=== PATIENT | female | born 1980 | race Caucasian/White ===

== ENCOUNTER 2021-07-21 10:10 | Inpatient (IN) | payer MEDICAID ==
[2021-07-21] MEDS ORDERED: Sodium Chloride 0.9% 10 ML Syringe FLUSH PRN (10:32)
[2021-07-21] MEDS ORDERED: Nalbuphine 10 MG/1 ML Vial IVPUSH PRN (10:32)
[2021-07-21] MEDS ORDERED: Ondansetron 4 MG/2 ML SDV IVPUSH PRN (10:32)
[2021-07-21] MEDS ORDERED: Oxytocin/Lactated Ringers 10 UNIT/1,000 ML BAG IV SCH ×2 (10:45→17:15)
[2021-07-21] MEDS: Lactated Ringers 1,000 ML IV SCH ×2 (19:23→20:30)
[2021-07-21] MEDS ORDERED: ePHEDrine 50 MG/ML SDV IVPUSH PRN (19:34)
[2021-07-21] MEDS ORDERED: diphenhydrAMINE 50 MG/ML SDV IVPUSH PRN (19:34)
[2021-07-21] MEDS ORDERED: fentaNYL 100 MCG/2 ML SDV EPIDUR PRN (19:34)
[2021-07-21] MEDS ORDERED: Bupivacaine/fentaNYL/NS 100 ML Bag EPIDUR PRN (19:34)
--- NOTE | 2021-07-21 20:11 | PCM.PREANE ---
Preanesthetic Assessment - Procedure Proposed Procedure: epidural - Anesthesia/Transfusion/Family Hx Anesthesia History: Prior Anesthesia Without Reaction Family History of Anesthesia Reaction: No Transfusion History: No Prior Transfusion(s) Intubation History: Unknown - Review of Systems General: Fatigue Pulmonary: No Symptoms Cardiovascular: No Symptoms Gastrointestinal: Abdominal Pain (labor) Neurological: No Symptoms Other: Reports: None - Physical Assessment Vital Signs: Last Vital Signs Temp 36.5 C 07/21/21 10:32 Pulse 82 07/21/21 10:32 Resp 16 07/21/21 10:32 BP 125/74 07/21/21 10:32 Pulse Ox 100 07/21/21 10:32 Height: 1.6 m Weight: 74.797 kg ASA Class: 2 Mental Status: Alert & Oriented x3 Airway Class: Mallampati = 1 Dentition: Reports: Normal Dentition Thyro-Mental Finger Breadths: 3 Mouth Opening Finger Breadths: 3 ROM/Head Extension: Full Lungs: Clear to Auscultation, Normal Respiratory Effort Cardiovascular: Regular Rate, Regular Rhythm - Lab Values: Laboratory Last Values WBC 12.75 K/mm3 (3.98-10.04) H 07/21/21 10:50 RBC 4.03 M/mm3 (3.98-5.22) 07/21/21 10:50 Hgb 12.0 gm/dl (11.2-15.7) 07/21/21 10:50 Hct 36.4 % (34.1-44.9) 07/21/21 10:50 MCV 90.3 fl (79.4-94.8) 07/21/21 10:50 MCH 29.8 pg (25.6-32.2) 07/21/21 10:50 MCHC 33.0 g/dl (32.2-35.5) 07/21/21 10:50 RDW Std Deviation 46.1 fL (36.4-46.3) 07/21/21 10:50 Plt Count 231 K/mm3 (182-369) 07/21/21 10:50 MPV 9.1 fl (9.4-12.3) L 07/21/21 10:50 SARS-CoV-2 RNA (RADHAMES) Negative (NEGATIVE) 07/21/21 10:25 - Allergies Allergies/Adverse Reactions: Allergies Allergy/AdvReac Type Severity Reaction Status Date / Time No Known Allergies Allergy Verified 09/13/18 08:38 - Anesthesia Plan Pre-Op Medication Ordered: None - Acknowledgements Anesthesia Type Planned: Epidural Pt an Appropriate Candidate for the Planned Anesthesia: Yes Alternatives and Risks of Anesthesia Discussed w Pt/Guardian: Yes Pt/Guardian Understands and Agrees with Anesthesia Plan: Yes PreAnesthesia Questionnaire - Past Health History Medical/Surgical History: Denies Medical/Surgical History Gastrointestinal History: Reports: GERD 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: Hematologic History: Reports: Anemia - Past Surgical History HEENT Surgical History: Reports: Oral Surgery GI Surgical History: Reports: Hernia, Inguinal Female Surgical History: Reports: D&C - SUBSTANCE USE Tobacco Use Status *Q: Never Tobacco User Tobacco Use Within Last Twelve Months: No Second Hand Smoke Exposure: No Recreational Drug Use History: No - HOME MEDS Home Medications: Home Meds Prenat 115/Iron Fum/Folic/Dss [ 19 Tablet] 1 tab PO DAILY 05/06/19 [History] - CURRENT (IN HOUSE) MEDS Current Meds: Current Medications Diphenhydramine HCl (Diphenhydramine 50 Mg/Ml Sdv) 25 mg IVPUSH Q6H PRN PRN Reason: pruritis Ephedrine Sulfate (Ephedrine 50 Mg/Ml Sdv) 5 mg IVPUSH ASDIRECTED PRN PRN Reason: Hypotension Fentanyl (Fentanyl 100 Mcg/2 Ml Sdv) 100 mcg EPIDUR Q3H PRN PRN Reason: Pain Last Admin: 07/21/21 19:53 Dose: 100 mcg Documented by: Fentanyl/Bupivacaine HCl (Bupivacaine/Fentanyl/Ns 100 Ml Bag) 100 ml EPIDUR ASDIRECTED PRN PRN Reason: Pain Last Admin: 07/21/21 19:54 Dose: 100 ml Documented by: Oxytocin/Lactated Ringer's (Pitocin In Lr 10 Units/1,000 Ml) 10 unit in 1,000 mls @ 500 mls/hr IV .CONTINUOUS RICHARD Lactated Ringer's (Ringers, Lactated) 1,000 mls @ 100 mls/hr IV ASDIRECTED RICHARD Last Admin: 07/21/21 19:23 Dose: 999 mls/hr Documented by: Oxytocin/Lactated Ringer's (Pitocin In Lr 10 Units/1,000 Ml) 10 unit in 1,000 mls @ 12 mls/hr IV TITRATE RICHARD; Protocol Nalbuphine HCl (Nalbuphine 10 Mg/1 Ml Vial) 10 mg IVPUSH Q2H PRN PRN Reason: Pain Ondansetron HCl (Ondansetron 4 Mg/2 Ml Sdv) 4 mg IVPUSH Q4H PRN PRN Reason: Nausea/Vomiting Sodium Chloride (Sodium Chloride 0.9% 10 Ml Syringe) 10 ml FLUSH ASDIRECTED PRN PRN Reason: Keep Vein Open
--- NOTE | 2021-07-22 01:27 | PCM.LDHP ---
L&D History of Present Illness - General Date of Service: 07/21/21 Admit Problem/Dx: Patient Status Order with Admit Dx/Problem 07/21/21 10:32 Patient Status [ADT] Routine Admission Diagnosis/Problem Admission Diagnosis/Problem Labor established - History of Present Illness Introduction:: 40 year old here with SROM clear fluid. Irregular contractions since shor tly before her water broke. PNC with Dr. 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: Hematologic History: Reports: Anemia - Past Surgical History HEENT Surgical History: Reports: Oral Surgery GI Surgical History: Reports: Hernia, Inguinal Female Surgical History: Reports: D&C Social & Family History - Family History Family Medical History: No Pertinent Family History - Tobacco Use Tobacco Use Status *Q: Never Tobacco User Second Hand Smoke Exposure: No - Caffeine Use Caffeine Use: Reports: None - Recreational Drug Use Recreational Drug Use: No - Living Situation & Occupation Living situation: Reports: Single, with Family Occupation: Employed ([email or web address]) H&P Review of Systems - Review of Systems: Review Of Systems: See Below General: Reports: No Symptoms HEENT: Reports: No Symptoms Pulmonary: Reports: No Symptoms Cardiovascular: Reports: No Symptoms Gastrointestinal: Reports: No Symptoms Musculoskeletal: Reports: No Symptoms Skin: Reports: No Symptoms Psychiatric: Reports: No Symptoms Neurological: Reports: No Symptoms Hematologic/Lymphatic: Reports: No Symptoms Immunologic: Reports: No Symptoms L&D Exam - Exam Exam: See Below - Vital Signs Vital Signs: Last Vital Signs Temp 36.5 C 07/21/21 10:32 Pulse 82 07/21/21 10:32 Resp 16 07/21/21 10:32 BP 125/74 07/21/21 10:32 Pulse Ox 100 07/21/21 10:32 Weight: 74.797 kg - OB Specific Contraction Intensity: Moderate Movement: Active Heart Tones: Present Heart Rate (FHR) Variability: Moderate (6-25 bpm) - Capellan Score Capellan Score Cervix Position: Midposition Capellan Score Consistency: Soft Capellan Score Effacement: 51-70% Capellan Score Dilation: 3-4 cm Capellan Score Infant's Station: -2 Capellan Score Total: 8 - Exam General: Alert, Oriented HEENT: PERRLA, Conjunctiva Clear, EACs Clear, EOMI, Hearing Intact, Mucosa Moist & [place], Nares Patent, Normal Nasal Septum, Posterior Pharynx Clear, TMs Clear Neck: Supple, Trachea Midline Lungs: Clear to Auscultation, Normal Respiratory Effort Cardiovascular: Regular Rate, Regular Rhythm GI/Abdominal Exam: Normal Bowel Sounds, Soft, Non-Tender, No Organomegaly, No D istention, No Abnormal Bruit, No Mass, Pelvis Stable Genitourinary: Normal external exam, Other (3) Back Exam: Normal Inspection, Full Range of Motion Extremities: Normal Inspection, Normal Range of Motion, Non-Tender, No Pedal Edema, Normal Capillary Refill Skin: Warm, Dry, Intact Neurological: Cranial Nerves Intact, Reflexes Equal Bilateral Psychiatric: Alert, Normal Affect, Normal Mood - Patient Data Lab Results Last 24 hrs: Laboratory Results - last 24 hr 07/21/21 07/21/21 Range/Units 10:25 10:50 WBC 12.75 H (3.98-10.04) K/mm3 RBC 4.03 (3.98-5.22) M/mm3 Hgb 12.0 (11.2-15.7) gm/dl Hct 36.4 (34.1-44.9) % MCV 90.3 (79.4-94.8) fl MCH 29.8 (25.6-32.2) pg MCHC 33.0 (32.2-35.5) g/dl RDW Std Deviation 46.1 (36.4-46.3) fL Plt Count 231 (182-369) K/mm3 MPV 9.1 L (9.4-12.3) fl SARS-CoV-2 RNA (RADHAMES) Negative (NEGATIVE) Result Diagrams: 07/21/21 10:50 Problem List Initiated/Reviewed/Updated: Yes Orders Last 24hrs: Active Orders 24 hr Category Date Time Status Patient Status [ADT] Routine ADT 07/21/21 10:32 Active Activity as Tolerated [RC] PFP Care 07/21/21 10:32 Active Communication Order [RC] ASDIRECTED Care 07/21/21 10:32 Active Communication Order [RC] ASDIRECTED Care 07/21/21 19:35 Active Cooling Warming Measures [RC] ASDIRECTED Care 07/21/21 19:34 Active Notify Provider [RC] ASDIRECTED Care 07/21/21 19:34 Active Notify Provider [RC] ASDIRECTED Care 07/21/21 19:35 Active Notify Provider [RC] PFP Care 07/21/21 10:32 Active Notify Provider [RC] PRN Care 07/21/21 10:32 Active Oxygen Therapy [RC] ASDIRECTED Care 07/21/21 19:34 Active Peripheral IV Care [RC] . DIRECTED Care 07/21/21 10:33 Active Pulse Oximetry [RC] ASDIRECTED Care 07/21/21 19:34 Active Vital Signs [RC] PER UNIT ROUTINE Care 07/21/21 10:32 Active Vital Signs [RC] Q1H Care 07/21/21 19:34 Active Regular Diet [DIET] Diet 07/21/21 Lunch Active RAPID PLASMA REAGIN,RPR [CHEM] Routine Lab 07/21/21 10:50 Received Bupivacaine/fentaNYL/NS [fentaNYL/Bupivacaine/NS 2 MCG- Med 07/21/21 19:34 Active 0.125% 100 ML] 100 ml EPIDUR ASDIRECTED PRN Lactated Ringers [Ringers, Lactated] 1,000 ml Med 07/21/21 10:45 Active IV ASDIRECTED Nalbuphine [Nubain] Med 07/21/21 10:32 Active 10 mg IVPUSH Q2H PRN Ondansetron [Zofran] Med 07/21/21 10:32 Active 4 mg IVPUSH Q4H PRN Oxytocin/Lactated Ringers [Pitocin in LR 10 Units/1,000 Med 07/21/21 10:45 Active ML] 10 unit in 1,000 ml IV .CONTINUOUS Oxytocin/Lactated Ringers [Pitocin in LR 10 Units/1,000 Med 07/21/21 17:15 Active ML] 10 unit in 1,000 ml IV TITRATE Sodium Chloride 0.9% [Saline Flush] Med 07/21/21 10:32 Active 10 ml FLUSH ASDIRECTED PRN diphenhydrAMINE [Benadryl] Med 07/21/21 19:34 Active 25 mg IVPUSH Q6H PRN ePHEDrine [ePHEDrine sulfate] Med 07/21/21 19:34 Active 5 mg IVPUSH ASDIRECTED PRN fentaNYL [Sublimaze] Med 07/21/21 19:34 Active 100 mcg EPIDUR Q3H PRN Electronic Heart Tones Ext w TOCO [WOMSER] Oth 07/21/21 10:32 Ordered Routine Electronic Heart Tones Internal [WOMSER] Per Unit Oth 07/21/21 10:32 Ordered Routine Peripheral IV Insertion Adult [OM.PC] Routine Oth 07/21/21 10:32 Ordered Resuscitation Status Routine Resus Stat 07/21/21 10:32 Ordered Medication Orders Diphenhydramine HCl (Diphenhydramine 50 Mg/Ml Sdv) 25 mg IVPUSH Q6H PRN PRN Reason: pruritis Ephedrine Sulfate (Ephedrine 50 Mg/Ml Sdv) 5 mg IVPUSH ASDIRECTED PRN PRN Reason: Hypotension Fentanyl (Fentanyl 100 Mcg/2 Ml Sdv) 100 mcg EPIDUR Q3H PRN PRN Reason: Pain Last Admin: 07/21/21 19:53 Dose: 100 mcg Documented by: ANDRES Fentanyl/Bupivacaine HCl (Bupivacaine/Fentanyl/Ns 100 Ml Bag) 100 ml EPIDUR ASDIRECTED PRN PRN Reason: Pain Last Admin: 07/21/21 19:54 Dose: 100 ml Documented by: ALAYNARTCELESTINA Oxytocin/Lactated Ringer's (Pitocin In Lr 10 Units/1,000 Ml) 10 unit in 1,000 mls @ 500 mls/hr IV .CONTINUOUS RICHARD Lactated Ringer's (Ringers, Lactated) 1,000 mls @ 100 mls/hr IV ASDIRECTED RICHARD Last Admin: 07/21/21 19:23 Dose: 999 mls/hr Documented by: ANDRES Oxytocin/Lactated Ringer's (Pitocin In Lr 10 Units/1,000 Ml) 10 unit in 1,000 mls @ 12 mls/hr IV TITRATE RICHARD; Protocol Last Titration: 07/22/21 00:25 Dose: 0 munits/min, 0 mls/hr Documented by: Titration: 07/21/21 23:10 Dose: 4 munits/min, 24 mls/hr Documented by: Admin: 07/21/21 22:05 Dose: 2 munits/min, 12 mls/hr Documented by: ANDRES Nalbuphine HCl (Nalbuphine 10 Mg/1 Ml Vial) 10 mg IVPUSH Q2H PRN PRN Reason: Pain Ondansetron HCl (Ondansetron 4 Mg/2 Ml Sdv) 4 mg IVPUSH Q4H PRN PRN Reason: Nausea/Vomiting Sodium Chloride (Sodium Chloride 0.9% 10 Ml Syringe) 10 ml FLUSH ASDIRECTED PRN PRN Reason: Keep Vein Open Assessment/Plan Comment:: Term labor. GBS negative Admit, labs, if minimal to no cervical change would initiate pitocin. Epidural prn.
--- NOTE | 2021-07-22 01:51 | PCM.SN.2 ---
- Free Text/Narrative Note: Stage I - patient presented with SROM clear fluid. Progressed to complete with overall reassuring heart tones. Epidural anesthesia. Augmentation with pitocin about 4 hour hours pre-delivery. Stage II - Patient found to be complete. of viable male, weight pending, APGARS 8/9 at 0135. Head delivered in controlled manner over intact perineum. Body and shoulders followed without difficulty. To maternal abdomen. Vigorous cry immediately. Cord clamped and cut at 3 minutes of life. Cord blood collected. Stage III - of intact placenta. 3vc. No laceration. EBL 150. Time Documentation
[2021-07-22] MEDS ORDERED: Bupivacaine 0.25% 10 ML SDV ONE (02:00)
[2021-07-22] MEDS ORDERED: Witch Hazel Medicated Pads 40/Jar TOP PRN (02:12)
[2021-07-22] MEDS ORDERED: Benzocaine/Menthol 20%-0.5% Spray 78 GM Cannister TOP PRN (02:12)
[2021-07-22] MEDS: Ibuprofen 600 MG Tab PO PRN ×2 (09:05→20:26)
--- NOTE | 2021-07-22 11:53 | PCM48HPAN ---
Post Anesthesia Note - EVALUATION WITHIN 48HRS OF ANESTHETIC Vital Signs in Normal Range: Yes Patient Participated in Evaluation: Yes Respiratory Function Stable: Yes Airway Patent: Yes Cardiovascular Function Stable: Yes Hydration Status Stable: Yes Pain Control Satisfactory: Yes Nausea and Vomiting Control Satisfactory: Yes Mental Status Recovered: Yes Vital Signs: Last Vital Signs Temp 36.5 C 07/21/21 10:32 Pulse 82 07/21/21 10:32 Resp 16 07/21/21 10:32 BP 125/74 07/21/21 10:32 Pulse Ox 100 07/21/21 10:32 - COMMENTS/OBSERVATIONS Free Text/Narrative:: no anesthesia complications noted
[2021-07-22] MEDS ORDERED: Acetaminophen 325 MG Tab PO PRN (16:11)
[2021-07-23] MEDS: Ibuprofen 600 MG Tab PO PRN (02:56)
--- NOTE | 2021-07-23 10:25 | PCM.DCSUM1 ---
Discharge Summary - Hospital Course Free Text/Narrative:: Stage I - patient presented with SROM clear fluid. Progressed to complete with overall reassuring heart tones. Epidural anesthesia. Augmentation with pitocin about 4 hour hours pre-delivery. Stage II - Patient found to be complete. of viable male, weight pending, APGARS 8/9 at 0135. Head delivered in controlled manner over intact perineum. Body and shoulders followed without difficulty. To maternal abdomen. Vigorous cry immediately. Cord clamped and cut at 3 minutes of life. Cord blood collected. Stage III - of intact placenta. 3vc. No laceration. EBL 150. patient is done well. She is nursing without problems. She has mi nimal lochia, is voiding well and has had normal vital signs. She is desiring discharge home. Diagnosis: Stroke: No - Discharge Data Discharge Date: 07/23/21 Discharge Disposition: Home, Self-Care 01 Condition: Good - Referral to Home Health Primary Care Physician: Mar Wray MD - Discharge Diagnosis/Problem(s) (1) 39 weeks gestation of SNOMED Code(s): 09573239 ICD Code: Z3A.39 - 39 WEEKS GESTATION OF Status: Acute Current Visit: Yes - Patient Instructions Diet: Regular Diet as Tolerated (Nursing diet with increased calories and calcium as recommended) Activity: As Tolerated (No intercourse or tampons until bleeding resolves) Driving: May Drive Today Showering/Bathing: May Shower (May take a bath) Notify Provider of: Fever, Increased Pain, Swelling and Redness, Nausea and/or Vomiting - Discharge Plan Home Medications: Home Meds Prenat 115/Iron Fum/Folic/Dss [ 19 Tablet] 1 tab PO DAILY 05/06/19 [History] Acetaminophen [Tylenol] 650 mg PO Q4H PRN tablet 07/23/21 [Rx] Ibuprofen [Motrin] 600 mg PO Q6H PRN tablet 07/23/21 [Rx] Referrals: Mar Wray MD [Primary Care Provider] - ([facility] - Discharge Summary/Plan Comment DC Time >30 min.: No Total # of Minutes for Discharge Time: 10 Discharge Summary/Plan Comment: Discharge instructions: 1. Discharge home 2. Diet, activity and follow-up discussed with patient. Recommend nursing diet with increased calories and calcium. 3. Precautions given concern increased pain, bleeding, temperature, signs/symptoms of DVT/PE. 4. Medications per home medication was printed, discussed with and given to the patient. 5. [facility]. Diagnosis: Term -delivered Condition: Good - Patient Data Vitals - Most Recent: Last Vital Signs Temp 36.7 C 07/23/21 03:22 Pulse 73 07/23/21 03:22 Resp 14 07/23/21 03:22 BP 113/74 07/23/21 03:22 Pulse Ox 98 07/23/21 03:22 Weight - Most Recent: 74.797 kg I&O - Last 24 hours: Intake & Output 07/22/21 07/23/21 07/23/21 22:59 06:59 14:59 Intake Total 420 Balance 420 Lab Results - Last 24 hrs: Laboratory Results - last 24 hr 07/21/21 Range/Units 10:50 RPR Non-reactive (NONREACTIVE) Med Orders - Current: Current Medications Acetaminophen (Acetaminophen 325 Mg Tab) 650 mg PO Q4H PRN PRN Reason: Pain Last Admin: 07/22/21 16:25 Dose: 650 mg Documented by: Benzocaine/Menthol (Benzocaine/Menthol 20%-0.5% Le[place]anc 78 Gm Cannister) 0 gm TOP ASDIRECTED PRN PRN Reason: Perineal Comfort Measure Ibuprofen (Ibuprofen 600 Mg Tab) 600 mg PO Q6H PRN PRN Reason: Mild pain or fever Last Admin: 07/23/21 02:56 Dose: 600 mg Documented by: Jaden Lopez (Jaden Lopez Medicated Pads 40/Jar) 1 pad TOP ASDIRECTED PRN PRN Reason: Perineal Comfort Measure Discontinued Medications Bupivacaine HCl (Bupivacaine 0.25% 10 Ml Sdv) 10 ml .ROUTE .STK-MED ONE Stop: 07/22/21 02:01 Diphenhydramine HCl (Diphenhydramine 50 Mg/Ml Sdv) 25 mg IVPUSH Q6H PRN PRN Reason: pruritis Ephedrine Sulfate (Ephedrine 50 Mg/Ml Sdv) 5 mg IVPUSH ASDIRECTED PRN PRN Reason: Hypotension Fentanyl (Fentanyl 100 Mcg/2 Ml Sdv) 100 mcg EPIDUR Q3H PRN PRN Reason: Pain Last Admin: 07/21/21 19:53 Dose: 100 mcg Documented by: Fentanyl/Bupivacaine HCl (Bupivacaine/Fentanyl/Ns 100 Ml Bag) 100 ml EPIDUR ASDIRECTED PRN PRN Reason: Pain Last Admin: 07/21/21 19:54 Dose: 100 ml Documented by: Oxytocin/Lactated Ringer's (Pitocin In Lr 10 Units/1,000 Ml) 10 unit in 1,000 mls @ 500 mls/hr IV .CONTINUOUS RICHARD Lactated Ringer's (Ringers, Lactated) 1,000 mls @ 100 mls/hr IV ASDIRECTED RICHARD Last Infusion: 07/21/21 20:45 Dose: 150 mls/hr Documented by: Oxytocin/Lactated Ringer's (Pitocin In Lr 10 Units/1,000 Ml) 10 unit in 1,000 mls @ 12 mls/hr IV TITRATE RICHARD; Protocol Last Titration: 07/22/21 01:40 Dose: 83.33 munits/min, 500 mls/hr Documented by: Nalbuphine HCl (Nalbuphine 10 Mg/1 Ml Vial) 10 mg IVPUSH Q2H PRN PRN Reason: Pain Ondansetron HCl (Ondansetron 4 Mg/2 Ml Sdv) 4 mg IVPUSH Q4H PRN PRN Reason: Nausea/Vomiting Sodium Chloride (Sodium Chloride 0.9% 10 Ml Syringe) 10 ml FLUSH ASDIRECTED PRN PRN Reason: Keep Vein Open
[2021-07-23 16:20] VITALS: BP 123/75; PULSE 71
== END 2021-07-23 14:30 | disposition home or self-care (01) | DRG 807 ==
LOC: JD.OBCHECK 10:10 → JD.OB 10:32 → OBSVTOIN 07-22 01:35 → JD.OB 07-22 01:35
PROVIDERS: ADMIT Obstetrics & Gynecology; ATTEND Obstetrics & Gynecology
PROC: 10E0XZZ Delivery of Products of Conception, External Approach (ICD-10-PCS; principal; 2021-07-22)
PROC: 3E0R3BZ Introduction of Anesthetic Agent into Spinal Canal, Percutaneous Approach (ICD-10-PCS; 2021-07-22)
DX: O99.62 Diseases of the digestive system complicating childbirth (principal); Z37.0 Single live birth; K21.9 Gastro-esophageal reflux disease without esophagitis; O99.02 Anemia complicating childbirth; D64.9 Anemia, unspecified; Z20.822 Contact with and (suspected) exposure to COVID-19; Z3A.39 39 weeks gestation of pregnancy
CPT/HCPCS: 01967; 36415; 51702; 59025; 59409; 85027; 86592; A9270-GY; J2590; J3010; J3490; J7120; U0002